=== PATIENT | male | born 1935 | race Caucasian/White ===

== ENCOUNTER 2019-06-05 12:59 | Inpatient (IN) | payer MEDICARE, BC ==
--- NOTE | 2019-06-05 13:25 | ED Physician Chart ---
ED Chief Complaint/HPI - Patient Information Date Seen:: 06/05/19 Time Seen:: 13:05 Chief Complaint:: elevated blood sugar History of Present Illness:: Patient's blood sugar was 400 this morning and has been elevated for the last 1 week. He has been anorexic for 2 days. No chills or fever. Patient's had an increased cough for 1 week. No vomiting or diarrhea. Patient was drinking alcohol heavily up to 1 week ago. He normally drinks beer, tequila and whiskey and normally drinks at least a six pack of beer per day. No history of alcohol withdrawal seizures. Patient has dementia so history was provided by the daughter brought the patient in. Patient lives with his daughter. Allergies:: Allergies Allergy/AdvReac Type Severity Reaction Status Date / Time No Known Allergies Allergy Verified 12/30/18 14:37 Historian:: Family Member Review:: Nurse's Note Reviewed ED Review of Systems - Review of Systems General/Constitutional: Weakness Skin: No skin lesions Head: No headache Eyes: No loss of vision ENT: No earache Neck: No neck pain, No swelling Cardio Vascular: No chest pain, No palpitations Pulmonary: No SOB GI: No nausea, No vomiting, No diarrhea G/U: No dysuria Musculoskeletal: No bone or joint pain Endocrine: No polyuria Psychiatric: Prior psych history Hematopoietic: No bruising Allergic/Immuno: No urticaria Neurological: No syncope ED Past Medical History - Past Medical History Past Medical History: HTN, DM, Other (benign prostatic hypertrophy) Family History: None Social History: Non Smoker, Alcohol Surgical History: None Psychiatricy History: Dementia, Other (dementia diagnosed 2 years ago) Medication: None Family Medical History - Family Member Mother History Unknown: Yes Ethnicity: Unknown Living Status: Unknown Hx Family Cancer: No Hx Family Coronary Artery Disease: No Hx Family Congestive Heart Failure: No Hx Family Hypertension: No Hx Family Stroke: No Hx Family Diabetes: No Hx Family Seizures: No Hx Family Dementia: No Hx Family AIDS: No Hx Family HIV: No Hx Family COPD: No Hx Family Hepatitis: No Hx Family Psychiatric Problems: No Hx Family Tuberculosis: No ED Physical Exam - Physical Examination General/Constitutional: Awake, Well-developed, well-nourished, Alert, No distress Head: Atraumatic Eyes: Lids, conjuctiva normal, PERRL Skin: Nl inspection, No rash, No skin lesions, No ecchymosis, Well hydrated, No lymphadenopathy ENMT: External ears, nose nl, TM canals nl, Nasal exam nl, Oropharynx nl Other ENMT comments:: one upper tooth present; several lower teeth present Neck: No JVD Respiratory: Nl effort/Exclusion, Clear to Auscultation, No Wheeze/Rhonchi/Rales Cardio Vascular: RRR, No murmur, gallop, rubs GI: No tenderness/rebounding/guarding, No organomegaly, No hernia, Normal BS's, Nondistended, No mass/bruits : No CVA tenderness Extremities: No edema Neuro/Psych: No focal deficits ED Labs/Radiology/EKG Results - Lab Results Results: Chest x-ray shows mild cardiomegaly and atherosclerosis - EKG Interpretations Rate & Rhythm: normal sinus rhythm with a rate of 62 [place]: normal axis Comments:: Q-wave in lead aVF ED Septic Shock - . Is Septic Shock (SBP<90, OR Lactate>4 mmol\L) present?: No ED Reassessment (Disposition) - Reassessment Reassessment Condition:: Unchanged - Diagnosis Diagnosis:: Anemia; diabetes with poor blood sugar control; hyperglycemia; history of heavy alcohol use - Patient Disposition Admitted to:: Med/Surg Spoke to:: Luz Lopez Admitting Medical Physician:: Luz Lopez Condition at Disposition:: Stable, Unchanged
--- NOTE | 2019-06-05 13:48 | Diagnostic Imaging Report ---
CHEST X-RAY: AP view INDICATION: Cough COMPARISON: 12/30/2018 FINDINGS: Chronic changes are noted with no focal consolidation or effusion. Left basal subsegmental atelectasis versus scarring is noted. Mild cardiomegaly is noted with tortuous aorta. There is mild prominent right paratracheal soft tissue density. Degenerative changes of the spine are noted. IMPRESSION: Chronic lung changes with no focal consolidation identified. Mild cardiomegaly with atherosclerosis Prominent right paratracheal soft tissue density, nonspecific, and may be due to prominent bronchovascular structures. Similar findings were seen on prior exams. Consider follow-up exam such as CT if warranted.
[2019-06-05 13:55] LABS: % MONOCYTES 9.8 % (2.0-10.0); BASOPHILE ABSOLUTE 0.1 Th/cumm (0-0.2); HEMOGLOBIN 9.6 gm/dL (12-16); MONOCYTE ABSOLUTE 0.4 Th/cmm (0.3-1.0)
[2019-06-05 13:58] LABS: % BASOPHILS 1.8 % (0.0-2.0); % EOSINOPHILS 3.9 % (0.0-5.0); % LYMPHOCYTES 27.9 % (20.0-50.0); % NEUTROPHILS 56.6 % (40.0-80.0); EOSINOPHILE ABSOLUTE 0.2 Th/cmm (0.1-0.4); HEMATOCRIT 28.9 % (41.0-60); LYMPHOCYTE ABSOLUTE 1.1 Th/cmm (1.5-3.0); MEAN CELL VOLUME 78.4 fl (80-99); MEAN CORPUSCULAR HEMOGLOBIN 26.1 pg (27.0-31.0); MEAN CORPUSCULAR HGB CONC 33.2 pg (28.0-36.0); NEUTROPHILE ABSOLUTE 2.1 Th/cmm (1.8-8.0); PLATELET COUNT 264 Th/cmm (150-400); RED BLOOD COUNT 3.68 Mil/cmm (3.80-5.80); RED CELL DISTRIBUTION WIDTH 14.4 % (11.5-20.0)
[2019-06-05 14:02] LABS: WHITE BLOOD COUNT 3.9 Th/cmm (4.8-10.8)
[2019-06-05 14:10] LABS: URINE SOURCE RANDOM
[2019-06-05 14:13] LABS: URINE BILIRUBIN NEGATIVE (NEGATIVE); URINE BLOOD NEGATIVE (NEGATIVE); URINE GLUCOSE (UA) >=1000 mg/dL (NEGATIVE); URINE KETONE TRACE mg/dL (NEGATIVE); URINE LEUKOCYTE ESTERASE NEGATIVE (NEGATIVE); URINE MICROSCOPIC INDICATED? YES; URINE NITRATE NEGATIVE (NEGATIVE); URINE PROTEIN 100 mg/dL (NEGATIVE)
[2019-06-05 14:14] LABS: URINE CLARITY HAZY (CLEAR); URINE COLOR YELLOW
[2019-06-05 14:20] LABS: URINE RBC NONE SEEN /hpf (0-5)
[2019-06-05 14:21] LABS: URINE BACTERIA FEW /hpf (NONE SEEN); URINE EPITHELIAL CELLS OCCASIONAL /lpf (FEW)
[2019-06-05 14:21] LABS: ANION GAP 12.2 (7.0-16.0); BUN - UREA NITROGEN 15 mg/dL (7-25); CALCIUM SERUM 9.1 mg/dL (8.6-10.3); CARBON DIOXIDE 25.9 mEq/L (21.0-31.0); CHLORIDE 105 mEq/L (98-107); CREATININE - SERUM 0.9 mg/dL (0.7-1.3); GLUCOSE 220 mg/dL (70-105); MAGNESIUM 2.2 mg/dL (1.9-2.7); POTASSIUM SERUM 4.1 mEq/L (3.5-5.1); SODIUM SERUM 139 mEq/L (136-145)
[2019-06-05] MEDS ORDERED: INSULIN LISPRO 100 UNIT/ML VIAL SUBQ SCH (16:40)
[2019-06-05] MEDS ORDERED: Pneumococcal Vaccine 0.5 mL Vial IM ONE (17:27)
[2019-06-05] MEDS: Sodium Chloride 0.9% 1,000 ML IV SCH (17:58)
--- NOTE | 2019-06-05 18:41 | History & Physical ---
ADMIT DATE: 06/05/2019 CHIEF COMPLAINT: Glucose of 400. HISTORY OF PRESENT ILLNESS: This is an 84-year-old male who is admitted to the Med/Surg unit due to a 1-week history of cough. Denies any shortness of breath or any fevers. The patient stated that he was drinking heavy alcohol a week ago and he noticed that his blood sugars started to jump up to 400 this morning. He states that his blood sugar was in the mid 400s. For this reason, he was brought to the ER to be evaluated. PAST MEDICAL HISTORY: Hypertension, diabetes and BPH. FAMILY HISTORY: Noncontributory. SOCIAL HISTORY: The patient is a heavy drinker. The patient drinks beer and tequila as well as whiskey. The patient states that he drinks about 6 pack beers per day. MEDICATIONS: See medication list. REVIEW OF SYSTEMS: GENERAL: Denies any fevers or chills. CARDIOVASCULAR: Denies chest pain. RESPIRATORY: No shortness of breath. GASTROINTESTINAL: Denies nausea, vomiting, abdominal pain. GENITOURINARY: Denies increased frequency or dysuria. NEUROLOGIC: No headaches, seizures or syncope. All systems are reviewed and are negative. PHYSICAL EXAMINATION: EXTREMITIES: The patient is well-developed, well-nourished, no apparent distress. VITAL SIGNS: Temperature 98.4, heart rate 65, blood pressure 143/70, respirations 18, O2 99%. HEENT: Head; normocephalic, atraumatic. NECK: Supple. No mass. LUNGS: Clear bilaterally. HEART: Regular rate and rhythm. ABDOMEN: Soft, nontender. EXTREMITIES: No edema noted. LABORATORY DATA: WBC 3.9, H and H 9.6 and 28.9, platelet of 264. Sodium 139, potassium 4.1, chloride 105, BUN 15, creatinine 0.9. ASSESSMENT: 1. Uncontrolled diabetes. 2. Alcoholism. 3. Generalized weakness. 4. Microcytic anemia. 5. Leukopenia. 6. Hypertension. 7. History of benign prostatic hypertrophy. PLAN: The patient to be admitted to the Med/Surg unit. We will do Accu-Chek a.c. and at bedtime with protocol for sliding scale. We will give gentle IV fluids for hydration. Keep the [facility] a [facility] diet. We will continue to monitor this patient. JOB# [id number]
[2019-06-05] MEDS ORDERED: Non-Formulary Item 1 EA (Atorvastatin Calcium [Lipitor] 20 MG) PO SCH (21:00)
[2019-06-05] MEDS: INSULIN LISPRO 100 UNIT/ML VIAL SUBQ SCH (23:59)
[2019-06-06] MEDS: Sodium Chloride 0.9% 1,000 ML IV SCH ×3 (04:58→23:03)
[2019-06-06 05:16] LABS: % BASOPHILS 1.3 % (0.0-2.0); % EOSINOPHILS 5.8 % (0.0-5.0); % LYMPHOCYTES 28.5 % (20.0-50.0); % MONOCYTES 11.2 % (2.0-10.0); % NEUTROPHILS 53.2 % (40.0-80.0); BASOPHILE ABSOLUTE 0.1 Th/cumm (0-0.2); EOSINOPHILE ABSOLUTE 0.3 Th/cmm (0.1-0.4); HEMATOCRIT 29.8 % (41.0-60); HEMOGLOBIN 9.7 gm/dL (12-16); LYMPHOCYTE ABSOLUTE 1.4 Th/cmm (1.5-3.0); MEAN CELL VOLUME 79.2 fl (80-99); MEAN CORPUSCULAR HEMOGLOBIN 25.8 pg (27.0-31.0); MEAN CORPUSCULAR HGB CONC 32.6 pg (28.0-36.0); MONOCYTE ABSOLUTE 0.5 Th/cmm (0.3-1.0); NEUTROPHILE ABSOLUTE 2.5 Th/cmm (1.8-8.0); PLATELET COUNT 252 Th/cmm (150-400); RED BLOOD COUNT 3.77 Mil/cmm (3.80-5.80); RED CELL DISTRIBUTION WIDTH 14.3 % (11.5-20.0); WHITE BLOOD COUNT 4.8 Th/cmm (4.8-10.8)
[2019-06-06 05:25] LABS: ALB/GLOB RATIO 1.5 (1.0-1.8); ALBUMIN 3.8 gm/dL (4.2-5.5); ALKALINE PHOSPHATASE 61 U/L (34-104); ANION GAP 10.6 (7.0-16.0); BILIRUBIN,TOTAL 0.5 mg/dL (0.3-1.0); BUN - UREA NITROGEN 13 mg/dL (7-25); CALCIUM SERUM 8.9 mg/dL (8.6-10.3); CARBON DIOXIDE 25.2 mEq/L (21.0-31.0); CHLORIDE 105 mEq/L (98-107); CREATININE - SERUM 0.8 mg/dL (0.7-1.3); GLUCOSE 166 mg/dL (70-105); POTASSIUM SERUM 3.8 mEq/L (3.5-5.1); SGOT 13 U/L (13-39); SGPT/ALT 4 U/L (7-52); SODIUM SERUM 137 mEq/L (136-145); TOTAL PROTEIN,SERUM 6.4 gm/dL (6.0-8.3)
[2019-06-06] MEDS: INSULIN LISPRO 100 UNIT/ML VIAL SUBQ SCH ×4 (05:34→21:15)
[2019-06-06 07:28] LABS: A1C 9.7 % (4.8-5.6)
[2019-06-06 07:58] VITALS: BP 143/70
[2019-06-06] MEDS: Vitamin D3 2,000 IU SGL PO SCH (08:11)
[2019-06-06] MEDS: Pantoprazole 40 mg EC Tab PO SCH (08:11)
[2019-06-06] MEDS: INSULIN 70/30 100 UNITS/ML SUBQ SCH ×2 (09:33→16:48)
--- NOTE | 2019-06-06 13:14 | Internal Medicine Prog Note ---
Internal Medicine Subjective - Subjective Service Date: 06/06/19 Patient seen and examined:: with staff Patient is:: awake, verbal Patient Complaints of:: other Per staff patient has:: no adverse event, no episodes of fall (Admitted with high glucose.) Internal Medicine Objective - Results Result Diagrams: 06/06/19 04:45 06/06/19 04:45 Recent Labs: Laboratory Last Values WBC 4.8 Th/cmm (4.8-10.8) 06/06/19 04:45 RBC 3.77 Mil/cmm (3.80-5.80) L 06/06/19 04:45 Hgb 9.7 gm/dL (12-16) L 06/06/19 04:45 Hct 29.8 % (41.0-60) L 06/06/19 04:45 MCV 79.2 fl (80-99) L 06/06/19 04:45 MCH 25.8 pg (27.0-31.0) L 06/06/19 04:45 MCHC Differential 32.6 pg (28.0-36.0) 06/06/19 04:45 RDW 14.3 % (11.5-20.0) 06/06/19 04:45 Plt Count 252 Th/cmm (150-400) 06/06/19 04:45 MPV 7.8 fl 06/06/19 04:45 Neutrophils % 53.2 % (40.0-80.0) 06/06/19 04:45 Lymphocytes % 28.5 % (20.0-50.0) 06/06/19 04:45 Monocytes % 11.2 % (2.0-10.0) H 06/06/19 04:45 Eosinophils % 5.8 % (0.0-5.0) H 06/06/19 04:45 Basophils % 1.3 % (0.0-2.0) 06/06/19 04:45 Sodium 137 mEq/L (136-145) 06/06/19 04:45 Potassium 3.8 mEq/L (3.5-5.1) 06/06/19 04:45 Chloride 105 mEq/L (98-107) 06/06/19 04:45 Carbon Dioxide 25.2 mEq/L (21.0-31.0) 06/06/19 04:45 Anion Gap 10.6 (7.0-16.0) 06/06/19 04:45 BUN 13 mg/dL (7-25) 06/06/19 04:45 Creatinine 0.8 mg/dL (0.7-1.3) 06/06/19 04:45 Est GFR ( Amer) TNP 06/06/19 04:45 Est GFR (Non-Af Amer) TNP 06/06/19 04:45 BUN/Creatinine Ratio 16.3 06/06/19 04:45 Glucose 166 mg/dL (70-105) H 06/06/19 04:45 POC Glucose 233 MG/DL (70 - 105) H 06/06/19 11:24 Calcium 8.9 mg/dL (8.6-10.3) 06/06/19 04:45 Magnesium 2.2 mg/dL (1.9-2.7) 06/05/19 13:25 Total Bilirubin 0.5 mg/dL (0.3-1.0) 06/06/19 04:45 AST 13 U/L (13-39) 06/06/19 04:45 ALT 4 U/L (7-52) L 06/06/19 04:45 Alkaline Phosphatase 61 U/L (34-104) 06/06/19 04:45 Total Protein 6.4 gm/dL (6.0-8.3) 06/06/19 04:45 Albumin 3.8 gm/dL (4.2-5.5) L 06/06/19 04:45 Globulin 2.6 gm/dL 06/06/19 04:45 Albumin/Globulin Ratio 1.5 (1.0-1.8) 06/06/19 04:45 TSH 1.04 uIU/ml (0.34-5.60) 06/06/19 04:45 Urine Source RANDOM 06/05/19 14:00 Urine Color YELLOW 06/05/19 14:00 Urine Clarity HAZY (CLEAR) 06/05/19 14:00 Urine pH 6.0 (4.6 - 8.0) 06/05/19 14:00 Ur Specific [place] 1.015 (1.005-1.030) 06/05/19 14:00 Urine Protein 100 mg/dL (NEGATIVE) H 06/05/19 14:00 Urine Glucose (UA) >=1000 mg/dL (NEGATIVE) H 06/05/19 14:00 Urine Ketones TRACE mg/dL (NEGATIVE) 06/05/19 14:00 Urine Blood NEGATIVE (NEGATIVE) 06/05/19 14:00 Urine Nitrate NEGATIVE (NEGATIVE) 06/05/19 14:00 Urine Bilirubin NEGATIVE (NEGATIVE) 06/05/19 14:00 Urine Urobilinogen 1.0 E.U./dL (0.2 - 1.0) 06/05/19 14:00 Ur Leukocyte Esterase NEGATIVE (NEGATIVE) 06/05/19 14:00 Urine RBC NONE SEEN /hpf (0-5) 06/05/19 14:00 Urine WBC 2-5 /hpf (0-5) 06/05/19 14:00 Ur Epithelial Cells OCCASIONAL /lpf (FEW) 06/05/19 14:00 Urine Bacteria FEW /hpf (NONE SEEN) 06/05/19 14:00 - Physical Exam Vitals and I&O: Vital Signs Temp 97.1 F 06/06/19 12:00 Pulse 72 06/06/19 12:00 Resp 17 06/06/19 12:00 BP 96/54 06/06/19 12:00 Pulse Ox 99 06/06/19 12:00 Intake & Output 06/05/19 06/06/19 06/06/19 18:59 06:59 18:59 Intake Total 300 1360 Output Total 0 Balance 300 1360 Weight (lbs) 63.82 kg 63.503 kg Intake: Intake, IV Amount 1000 Sodium Chloride 0.9% 1, 1000 000 ml @ 100 mls/hr IV . Q10H [facility] Rx#:[id number] Oral 300 360 Output: Urine 0 Other: # Voids 1 4 Weight Source Bedscale Bedscale Active Medications: Current Medications Amlodipine Besylate (Norvasc) 10 mg PO DAILY SUSAN Stop: 08/05/19 08:59 Last Admin: 06/06/19 08:23 Dose: 10 mg Atorvastatin Calcium (Lipitor) 20 mg PO HS [facility] Stop: 08/05/19 20:59 Donepezil HCl (Aricept) 10 mg PO HS SUSAN Stop: 08/04/19 20:59 Last Admin: 06/05/19 20:05 Dose: 10 mg Doxazosin Mesylate (Cardura) 4 mg PO DAILY [facility]USAN Stop: 08/05/19 08:59 Last Admin: 06/06/19 08:23 Dose: 4 mg Folic Acid (Folate) 0.4 mg PO DAILY [facility]AN Stop: 08/05/19 08:59 Last Admin: 06/06/19 08:12 Dose: 0.4 mg Gabapentin (Neurontin) 100 mg PO BID [facility] Stop: 08/05/19 08:59 Last Admin: 06/06/19 08:11 Dose: 100 mg Sodium Chloride (Nacl 0.9%) 1,000 mls @ 100 mls/hr IV .Q10H [facility] Stop: 08/04/19 16:39 Last Admin: 06/06/19 04:58 Dose: 100 mls/hr Insulin Human Isoph/Insulin Regular (Humulin 70/30) 18 unit SUBQ BIDAC [facility] Stop: 08/05/19 08:59 Last Admin: 06/06/19 09:33 Dose: 18 units Insulin Human Lispro (Humalog) 2 unit SUBQ ACHS [facility]; Protocol Stop: 08/05/19 00:00 Last Admin: 06/06/19 12:15 Dose: 4 units Lisinopril (Zestril) 40 mg PO DAILY SUSAN Stop: 08/05/19 08:59 Last Admin: 06/06/19 08:22 Dose: 40 mg Memantine (Namenda) 5 mg PO TID [facility] Stop: 08/05/19 08:59 Last Admin: 06/06/19 08:30 Dose: 5 mg Metformin HCl (Glucophage) 500 mg PO BID [facility] Stop: 08/04/19 16:59 Last Admin: 06/06/19 08:11 Dose: 500 mg Pantoprazole Sodium (Protonix) 40 mg PO DAILY [facility] Stop: 08/05/19 08:59 Last Admin: 06/06/19 08:11 Dose: 40 mg Sodium Chloride (Nacl Tab) 1 gm PO DAILY [facility]USAN Stop: 08/05/19 08:59 Last Admin: 06/06/19 08:11 Dose: 1 gm Thiamine HCl (Vitamin B1) 250 mg PO DAILY [facility] Stop: 08/05/19 08:59 Last Admin: 06/06/19 08:12 Dose: 250 mg Vitamin D (Vitamin D3) 2,000 iu PO DAILY [facility] Stop: 08/05/19 08:59 Last Admin: 06/06/19 08:11 Dose: 2,000 iu Physical Exam: Patient has fatigue. General: weak HEENT: NC/AT Neck: Supple, No JVD Lungs: CTAB Cardiovascular: RRR, Normal S1 Abdomen: soft, non-tender Extremities: clear Neurological: no change Internal Medicine Assmt/Plan - Assessment Assessment: Anemia. Diabetes with blood sugar control. Hyperglycemia. History of heavy alcohol use. - Plan Plan: Continuation of care. Monitor Labs, Hemoglobin levels. Continue present meds as directed. Accu-check daily, Continue DM meds as directed. Monitor Diet/Nutritional support. Physical therapy.Occupational therapy prn. Fall precaution, frequent nursing rounds, and as needed restraints to prevent fall. Supportive care. Continue collaborating with consulting specialists, case management and nursing team. Will Monitor patient and continue current treatment plan as ordered. Nutritional Asmnt/Malnutr-PDOC - Dietary Evaluation Malnutrition Findings (Please click <Entered> for more info): see order.
[2019-06-06] MEDS ORDERED: VTE Chemical Prophylaxis Screen/Admission MC PRN (13:48)
[2019-06-06] MEDS: Atorvastatin Calcium 10 MG TAB PO SCH (21:05)
[2019-06-06] MEDS: Heparin Sod 5,000Units/ML 5,000 UNITS/ML VIAL SUBQ SCH (21:13)
[2019-06-07] MEDS ORDERED: INSULIN LISPRO 100 UNIT/ML VIAL SUBQ SCH
[2019-06-07] MEDS: INSULIN LISPRO 100 UNIT/ML VIAL SUBQ SCH ×4 (06:59→20:32)
[2019-06-07] MEDS: INSULIN 70/30 100 UNITS/ML SUBQ SCH ×2 (07:01→17:01)
[2019-06-07] MEDS: Sodium Chloride 0.9% 1,000 ML IV SCH ×2 (09:12→18:08)
[2019-06-07] MEDS: Heparin Sod 5,000Units/ML 5,000 UNITS/ML VIAL SUBQ SCH ×2 (09:14→20:30)
[2019-06-07] MEDS: Pantoprazole 40 mg EC Tab PO SCH (09:16)
[2019-06-07] MEDS: Vitamin D3 2,000 IU SGL PO SCH (09:22)
[2019-06-07 09:32] LABS: ANION GAP 11.8 (7.0-16.0); BUN - UREA NITROGEN 11 mg/dL (7-25); CALCIUM SERUM 8.5 mg/dL (8.6-10.3); CARBON DIOXIDE 24.5 mEq/L (21.0-31.0); CHLORIDE 104 mEq/L (98-107); CREATININE - SERUM 0.7 mg/dL (0.7-1.3); GLUCOSE 308 mg/dL (70-105); POTASSIUM SERUM 3.3 mEq/L (3.5-5.1); SODIUM SERUM 137 mEq/L (136-145)
[2019-06-07 09:43] LABS: % BASOPHILS 1.2 % (0.0-2.0); % EOSINOPHILS 4.8 % (0.0-5.0); % LYMPHOCYTES 24.6 % (20.0-50.0); % MONOCYTES 8.2 % (2.0-10.0); % NEUTROPHILS 61.2 % (40.0-80.0); EOSINOPHILE ABSOLUTE 0.2 Th/cmm (0.1-0.4); HEMATOCRIT 29.5 % (41.0-60); HEMOGLOBIN 9.7 gm/dL (12-16); LYMPHOCYTE ABSOLUTE 0.8 Th/cmm (1.5-3.0); MEAN CELL VOLUME 79.2 fl (80-99); MEAN CORPUSCULAR HEMOGLOBIN 26.1 pg (27.0-31.0); MEAN CORPUSCULAR HGB CONC 32.9 pg (28.0-36.0); MONOCYTE ABSOLUTE 0.3 Th/cmm (0.3-1.0); PLATELET COUNT 242 Th/cmm (150-400); RED BLOOD COUNT 3.72 Mil/cmm (3.80-5.80); RED CELL DISTRIBUTION WIDTH 14.5 % (11.5-20.0)
[2019-06-07 09:55] LABS: WHITE BLOOD COUNT 3.3 Th/cmm (4.8-10.8)
[2019-06-07] MEDS ORDERED: Potassium Chloride 20 mEq ER Tab PO ONE (10:25)
--- NOTE | 2019-06-07 10:35 | Internal Medicine Prog Note ---
Internal Medicine Subjective - Subjective Service Date: 06/07/19 Patient seen and examined:: with staff Patient is:: awake, verbal Patient Complaints of:: other Per staff patient has:: no adverse event, no episodes of fall (Admitted with high glucose.) Internal Medicine Objective - Results Result Diagrams: 06/07/19 08:55 06/07/19 08:55 Recent Labs: Laboratory Last Values WBC 3.3 Th/cmm (4.8-10.8) L 06/07/19 08:55 RBC 3.72 Mil/cmm (3.80-5.80) L 06/07/19 08:55 Hgb 9.7 gm/dL (12-16) L 06/07/19 08:55 Hct 29.5 % (41.0-60) L 06/07/19 08:55 MCV 79.2 fl (80-99) L 06/07/19 08:55 MCH 26.1 pg (27.0-31.0) L 06/07/19 08:55 MCHC Differential 32.9 pg (28.0-36.0) 06/07/19 08:55 RDW 14.5 % (11.5-20.0) 06/07/19 08:55 Plt Count 242 Th/cmm (150-400) 06/07/19 08:55 MPV 8.2 fl 06/07/19 08:55 Neutrophils % 61.2 % (40.0-80.0) 06/07/19 08:55 Lymphocytes % 24.6 % (20.0-50.0) 06/07/19 08:55 Monocytes % 8.2 % (2.0-10.0) 06/07/19 08:55 Eosinophils % 4.8 % (0.0-5.0) 06/07/19 08:55 Basophils % 1.2 % (0.0-2.0) 06/07/19 08:55 Sodium 137 mEq/L (136-145) 06/07/19 08:55 Potassium 3.3 mEq/L (3.5-5.1) L 06/07/19 08:55 Chloride 104 mEq/L (98-107) 06/07/19 08:55 Carbon Dioxide 24.5 mEq/L (21.0-31.0) 06/07/19 08:55 Anion Gap 11.8 (7.0-16.0) 06/07/19 08:55 BUN 11 mg/dL (7-25) 06/07/19 08:55 Creatinine 0.7 mg/dL (0.7-1.3) 06/07/19 08:55 Est GFR ( Amer) TNP 06/07/19 08:55 Est GFR (Non-Af Amer) TNP 06/07/19 08:55 BUN/Creatinine Ratio 15.7 06/07/19 08:55 Glucose 308 mg/dL (70-105) H 06/07/19 08:55 POC Glucose 239 MG/DL (70 - 105) H 06/07/19 06:11 Calcium 8.5 mg/dL (8.6-10.3) L 06/07/19 08:55 Magnesium 2.2 mg/dL (1.9-2.7) 06/05/19 13:25 Total Bilirubin 0.5 mg/dL (0.3-1.0) 06/06/19 04:45 AST 13 U/L (13-39) 06/06/19 04:45 ALT 4 U/L (7-52) L 06/06/19 04:45 Alkaline Phosphatase 61 U/L (34-104) 06/06/19 04:45 Total Protein 6.4 gm/dL (6.0-8.3) 06/06/19 04:45 Albumin 3.8 gm/dL (4.2-5.5) L 06/06/19 04:45 Globulin 2.6 gm/dL 06/06/19 04:45 Albumin/Globulin Ratio 1.5 (1.0-1.8) 06/06/19 04:45 TSH 1.04 uIU/ml (0.34-5.60) 06/06/19 04:45 Urine Source RANDOM 06/05/19 14:00 Urine Color YELLOW 06/05/19 14:00 Urine Clarity HAZY (CLEAR) 06/05/19 14:00 Urine pH 6.0 (4.6 - 8.0) 06/05/19 14:00 Ur Specific [place] 1.015 (1.005-1.030) 06/05/19 14:00 Urine Protein 100 mg/dL (NEGATIVE) H 06/05/19 14:00 Urine Glucose (UA) >=1000 mg/dL (NEGATIVE) H 06/05/19 14:00 Urine Ketones TRACE mg/dL (NEGATIVE) 06/05/19 14:00 Urine Blood NEGATIVE (NEGATIVE) 06/05/19 14:00 Urine Nitrate NEGATIVE (NEGATIVE) 06/05/19 14:00 Urine Bilirubin NEGATIVE (NEGATIVE) 06/05/19 14:00 Urine Urobilinogen 1.0 E.U./dL (0.2 - 1.0) 06/05/19 14:00 Ur Leukocyte Esterase NEGATIVE (NEGATIVE) 06/05/19 14:00 Urine RBC NONE SEEN /hpf (0-5) 06/05/19 14:00 Urine WBC 2-5 /hpf (0-5) 06/05/19 14:00 Ur Epithelial Cells OCCASIONAL /lpf (FEW) 06/05/19 14:00 Urine Bacteria FEW /hpf (NONE SEEN) 06/05/19 14:00 - Physical Exam Vitals and I&O: Vital Signs Temp 97.0 F 06/07/19 08:00 Pulse 66 06/07/19 09:19 Resp 17 06/07/19 08:00 BP 150/69 06/07/19 09:19 Pulse Ox 98 06/07/19 08:00 Intake & Output 06/06/19 06/07/19 06/07/19 18:59 06:59 18:59 Intake Total 1440 5116.613 0893 Output Total 800 Balance 1440 768.177 6241 Weight (lbs) 63.503 kg 69.037 kg Intake: Intake, IV Amount 890 102.284 2230 Sodium Chloride 0.9% 1, 890 806.579 2003 000 ml @ 100 mls/hr IV . Q10H [facility] Rx#:[id number] Oral 550 300 Output: Urine 800 Other: # Voids 3 Weight Source Bedscale Bedscale Active Medications: Current Medications Amlodipine Besylate (Norvasc) 10 mg PO DAILY [facility]USAN Stop: 08/05/19 08:59 Last Admin: 06/07/19 09:19 Dose: 10 mg Atorvastatin Calcium (Lipitor) 20 mg PO HS [facility] Stop: 08/05/19 20:59 Last Admin: 06/06/19 21:05 Dose: 20 mg Donepezil HCl (Aricept) 10 mg PO HS [facility] Stop: 08/04/19 20:59 Last Admin: 06/06/19 21:06 Dose: 10 mg Doxazosin Mesylate (Cardura) 4 mg PO DAILY [facility] Stop: 08/05/19 08:59 Last Admin: 06/07/19 09:19 Dose: 4 mg Folic Acid (Folate) 0.4 mg PO DAILY [facility] Stop: 08/05/19 08:59 Last Admin: 06/07/19 09:16 Dose: 0.4 mg Gabapentin (Neurontin) 100 mg PO BID [facility] Stop: 08/05/19 08:59 Last Admin: 06/07/19 09:20 Dose: 100 mg Heparin Sodium (Porcine) (Heparin) 5,000 units SUBQ Q12H [facility] Stop: 08/05/19 20:59 Last Admin: 06/07/19 09:14 Dose: 5,000 units Sodium Chloride (Nacl 0.9%) 1,000 mls @ 100 mls/hr IV .Q10H [facility] Stop: 08/04/19 16:39 Last Admin: 06/07/19 09:12 Dose: 100 mls/hr Insulin Human Isoph/Insulin Regular (Humulin 70/30) 18 unit SUBQ BIDAC [facility] Stop: 08/05/19 08:59 Last Admin: 06/07/19 07:01 Dose: 18 units Insulin Human Lispro (Humalog) 2 unit SUBQ [facility]; Protocol Stop: 08/05/19 00:00 Last Admin: 06/07/19 06:59 Dose: 4 units Lisinopril (Zestril) 40 mg PO DAILY [facility] Stop: 08/05/19 08:59 Last Admin: 06/07/19 09:18 Dose: 40 mg Memantine (Namenda) 5 mg PO TID [facility] Stop: 08/05/19 08:59 Last Admin: 06/07/19 09:22 Dose: 5 mg Metformin HCl (Glucophage) 500 mg PO BID [facility] Stop: 08/04/19 16:59 Last Admin: 06/07/19 09:22 Dose: 500 mg Miscellaneous (Vte Chemical Prophylaxis Screen/ Admission) 1 ea [facility] PRN PRN PRN Reason: PROTOCOL Stop: 08/05/19 13:47 Pantoprazole Sodium (Protonix) 40 mg PO DAILY [facility] Stop: 08/05/19 08:59 Last Admin: 06/07/19 09:16 Dose: 40 mg Potassium Chloride (Klor-Con) 40 meq PO X1 ONE Stop: 06/07/19 10:26 Sodium Chloride (Nacl Tab) 1 gm PO DAILY [facility]USAN Stop: 08/05/19 08:59 Last Admin: 06/07/19 09:22 Dose: 1 gm Thiamine HCl (Vitamin B1) 250 mg PO DAILY [facility] Stop: 08/05/19 08:59 Last Admin: 06/07/19 09:20 Dose: 250 mg Vitamin D (Vitamin D3) 2,000 iu PO DAILY [facility]US[facility] Stop: 08/05/19 08:59 Last Admin: 06/07/19 09:22 Dose: 2,000 iu Physical Exam: Patient has weakness. General: weak HEENT: NC/AT Neck: Supple, No JVD Lungs: CTAB Cardiovascular: RRR, Normal S1 Abdomen: soft, non-tender Extremities: clear Neurological: no change Internal Medicine Assmt/Plan - Assessment Assessment: Anemia. Diabetes with blood sugar control. Hyperglycemia. History of heavy alcohol use. - Plan Plan: Continuation of care. Monitor Labs, Hemoglobin levels. Continue present meds as directed. Accu-check daily, Continue DM meds as directed. Monitor Diet/Nutritional support. Physical therapy.Occupational therapy prn. Fall precaution, frequent nursing rounds, and as needed restraints to prevent fall. Supportive care. Continue collaborating with consulting specialists, case management and nursing team. Will Monitor patient and continue present care management. Nutritional Asmnt/Malnutr-PDOC - Dietary Evaluation Malnutrition Findings (Please click <Entered> for more info): Nutritional Asmnt/Malnutrition Start: 06/06/19 16: 15 Text: Status: Complete Freq: Protocol: Document 06/06/19 16:15 BINH (Rec: 06/06/19 16:18 [id number] [email or web address] ) Nutritional Asmnt/Malnutrition Patient General Information Nutritional Screening High Risk Low Risk Diagnosis Uncontrolled Diabetes Pertinent Medical Hx/Surgical Hx HTN, DM, Dyslipidemia, BPH Subjective Information IA/Consult: Uncontrolled Diabetes Pt is a 84-year-old male admitted on 06/05 d/t uncontrolled diabetes. Per H& P Record, Pt is a heavy drinker, drinks beer and tequila as well as whiskey. Pt stated he drinks about 6 pack beers per day. Per Meal/ Nutrition Activity Record, Pt ate 100% dinner on 06/05. Per RN Sissy, Pt ate 100% breakfast and lunch today. RN stated Pts usual diet was not noted since Pt is from home and [place] speaking only. No [place]ese speaking staffs available at time of visit. Will assess as high risk in 2- 3 days. HT: 56 WT: 140 LB (63.64 kg) BMI: 22.60 (Normal) GI: WNL, Non-tender, Large, Round BM: Not Noted I/O: 1660/Not Noted Skin: WNL, Intact, Warm, Dry, Elastic Isaac: 20 Diet Order: CCHO 60 gm Estimated Energy Needs: ( Geriatric, CBW) 2711-3210 kcals (25-30 kcals/ kg) 63-76 g Pro (1.0-1.2 g/kg) 4503-7491 ml (25-30 ml/kg) Current Diet Order/ Nutrition Support CCHO 60 gm Pertinent Medications Lipitor, Folate, Humulin 70/30 , Humalog, Glucophage, Protonix, Nacl 0.9%, Nacl Tab, Vitamin B1, Vitamin D3 Pertinent Labs POC Glucose (last 24 hours) 256, 170, 194, 252 06/06: Hgb/Hct 9.7/29.8, Glucose 166, Alb 3.8 06/05: Hgb/Hct 9.6/28.9, Glucose 220 Nutritional Hx/Data Height 1.68 m Height (Calculated Centimeters) 167.6 Current Weight (lbs) 63.503 kg Weight (Calculated Kilograms) 63.5 Weight (Calculated Grams) 82254.9 [place] Body Weight 64.55 kg % [place] Body Weight 99 Body Mass Index (BMI) 22.6 Weight Status Approriate GI Symptoms GI Symptoms None Last BM Not Noted Skin Integrity/Comment: WNL, Intact, Warm, Dry, Elastic Isaac: 20 Current %PO Good (75-100%) Estimated Nutritional Goals BEE in Kcals: Using Current wt Calories/Kcals/Kg 25-30 Kcals Calculated 6787-8628 Protein: Using Current wt Protein g/k.0-1.2 Protein Calculated 63-76 Fluid: ml 4762-9934 ml (25-30 ml/kg) Nutritional Problem 1. Problem Problem Altered nutrition related labs Etiology r/t endocrine dysfunction and HX of DM Signs/Symptoms: aeb Glucose 166 and POC Glucose (last 24 hours) 256, 170, 194, 252 Malnutrition Related to Morbid Obesity Malnutrition related to morbid obesity No Intervention/Recommendation Comments 1.Continue with CCHO 60 gm diet as ordered. 2.Continue on anti- hyperglycemic medications for glucose control per MD order. Expected Outcomes/Goals Expected Outcomes/Goals 1. PO intake to continue to meet 75% of nutritional needs. 2. Monitor PO intake, wt, skin integrity, and nutrition related labs to trend WNL. 3. F/U as high risk in 2-3 days, 06/08-06/09
[2019-06-07] MEDS: Atorvastatin Calcium 10 MG TAB PO SCH (20:31)
[2019-06-08] MEDS: INSULIN LISPRO 100 UNIT/ML VIAL SUBQ SCH ×4 (07:17→21:20)
[2019-06-08] MEDS: INSULIN 70/30 100 UNITS/ML SUBQ SCH ×2 (07:17→16:43)
[2019-06-08] MEDS: Pantoprazole 40 mg EC Tab PO SCH (08:51)
[2019-06-08] MEDS: Vitamin D3 2,000 IU SGL PO SCH (08:52)
[2019-06-08] MEDS: Heparin Sod 5,000Units/ML 5,000 UNITS/ML VIAL SUBQ SCH ×2 (08:54→20:57)
--- NOTE | 2019-06-08 10:44 | Internal Medicine Prog Note ---
Internal Medicine Subjective - Subjective Patient is:: awake, verbal, interactive, arousable, in bed, other (No acute distress) Per staff patient has:: no adverse event, no episodes of fall (Admitted with high glucose.) Internal Medicine Objective - Results Result Diagrams: 06/07/19 08:55 06/07/19 08:55 Recent Labs: Laboratory Last Values WBC 3.3 Th/cmm (4.8-10.8) L 06/07/19 08:55 RBC 3.72 Mil/cmm (3.80-5.80) L 06/07/19 08:55 Hgb 9.7 gm/dL (12-16) L 06/07/19 08:55 Hct 29.5 % (41.0-60) L 06/07/19 08:55 MCV 79.2 fl (80-99) L 06/07/19 08:55 MCH 26.1 pg (27.0-31.0) L 06/07/19 08:55 MCHC Differential 32.9 pg (28.0-36.0) 06/07/19 08:55 RDW 14.5 % (11.5-20.0) 06/07/19 08:55 Plt Count 242 Th/cmm (150-400) 06/07/19 08:55 MPV 8.2 fl 06/07/19 08:55 Neutrophils % 61.2 % (40.0-80.0) 06/07/19 08:55 Lymphocytes % 24.6 % (20.0-50.0) 06/07/19 08:55 Monocytes % 8.2 % (2.0-10.0) 06/07/19 08:55 Eosinophils % 4.8 % (0.0-5.0) 06/07/19 08:55 Basophils % 1.2 % (0.0-2.0) 06/07/19 08:55 Sodium 137 mEq/L (136-145) 06/07/19 08:55 Potassium 3.3 mEq/L (3.5-5.1) L 06/07/19 08:55 Chloride 104 mEq/L (98-107) 06/07/19 08:55 Carbon Dioxide 24.5 mEq/L (21.0-31.0) 06/07/19 08:55 Anion Gap 11.8 (7.0-16.0) 06/07/19 08:55 BUN 11 mg/dL (7-25) 06/07/19 08:55 Creatinine 0.7 mg/dL (0.7-1.3) 06/07/19 08:55 Est GFR ( Amer) TNP 06/07/19 08:55 Est GFR (Non-Af Amer) TNP 06/07/19 08:55 BUN/Creatinine Ratio 15.7 06/07/19 08:55 Glucose 308 mg/dL (70-105) H 06/07/19 08:55 POC Glucose 268 MG/DL (70 - 105) H 06/08/19 06:22 Calcium 8.5 mg/dL (8.6-10.3) L 06/07/19 08:55 Magnesium 2.2 mg/dL (1.9-2.7) 06/05/19 13:25 Total Bilirubin 0.5 mg/dL (0.3-1.0) 06/06/19 04:45 AST 13 U/L (13-39) 06/06/19 04:45 ALT 4 U/L (7-52) L 06/06/19 04:45 Alkaline Phosphatase 61 U/L (34-104) 06/06/19 04:45 Total Protein 6.4 gm/dL (6.0-8.3) 06/06/19 04:45 Albumin 3.8 gm/dL (4.2-5.5) L 06/06/19 04:45 Globulin 2.6 gm/dL 06/06/19 04:45 Albumin/Globulin Ratio 1.5 (1.0-1.8) 06/06/19 04:45 TSH 1.04 uIU/ml (0.34-5.60) 06/06/19 04:45 Urine Source RANDOM 06/05/19 14:00 Urine Color YELLOW 06/05/19 14:00 Urine Clarity HAZY (CLEAR) 06/05/19 14:00 Urine pH 6.0 (4.6 - 8.0) 06/05/19 14:00 Ur Specific [place] 1.015 (1.005-1.030) 06/05/19 14:00 Urine Protein 100 mg/dL (NEGATIVE) H 06/05/19 14:00 Urine Glucose (UA) >=1000 mg/dL (NEGATIVE) H 06/05/19 14:00 Urine Ketones TRACE mg/dL (NEGATIVE) 06/05/19 14:00 Urine Blood NEGATIVE (NEGATIVE) 06/05/19 14:00 Urine Nitrate NEGATIVE (NEGATIVE) 06/05/19 14:00 Urine Bilirubin NEGATIVE (NEGATIVE) 06/05/19 14:00 Urine Urobilinogen 1.0 E.U./dL (0.2 - 1.0) 06/05/19 14:00 Ur Leukocyte Esterase NEGATIVE (NEGATIVE) 06/05/19 14:00 Urine RBC NONE SEEN /hpf (0-5) 06/05/19 14:00 Urine WBC 2-5 /hpf (0-5) 06/05/19 14:00 Ur Epithelial Cells OCCASIONAL /lpf (FEW) 06/05/19 14:00 Urine Bacteria FEW /hpf (NONE SEEN) 06/05/19 14:00 - Physical Exam Vitals and I&O: Vital Signs Temp 97.7 F 06/08/19 08:00 Pulse 66 06/08/19 08:53 Resp 18 06/08/19 08:00 BP 151/66 06/08/19 08:53 Pulse Ox 100 06/08/19 08:00 Intake & Output 06/07/19 06/08/19 06/08/19 18:59 06:59 18:59 Intake Total 1893.333 300 200 Output Total 1000 800 Balance 1893.333 -700 -600 Weight (lbs) 155 lb 155 lb 9.6 oz Intake: Intake, IV Amount 1893.333 Sodium Chloride 0.9% 1, 1893.333 000 ml @ 100 mls/hr IV . Q10H [facility] Rx#:[id number] Oral 300 200 Output: Urine 1000 800 Other: # Voids 3 Weight Source Bedscale Bedscale Active Medications: Current Medications Amlodipine Besylate (Norvasc) 10 mg PO DAILY SUSAN Stop: 08/05/19 08:59 Last Admin: 06/08/19 08:53 Dose: 10 mg Atorvastatin Calcium (Lipitor) 20 mg PO HS SUSAN Stop: 08/05/19 20:59 Last Admin: 06/07/19 20:31 Dose: 20 mg Donepezil HCl (Aricept) 10 mg PO HS SUSAN Stop: 08/04/19 20:59 Last Admin: 06/07/19 20:33 Dose: 10 mg Doxazosin Mesylate (Cardura) 4 mg PO DAILY [facility] Stop: 08/05/19 08:59 Last Admin: 06/08/19 08:52 Dose: 4 mg Folic Acid (Folate) 0.4 mg PO DAILY SUSAN Stop: 08/05/19 08:59 Last Admin: 06/08/19 08:51 Dose: 0.4 mg Gabapentin (Neurontin) 100 mg PO BID [facility]AN Stop: 08/05/19 08:59 Last Admin: 06/08/19 08:56 Dose: 100 mg Heparin Sodium (Porcine) (Heparin) 5,000 units SUBQ Q12H [facility] Stop: 08/05/19 20:59 Last Admin: 06/08/19 08:54 Dose: 5,000 units Sodium Chloride (Nacl 0.9%) 1,000 mls @ 100 mls/hr IV .Q10H [facility] Stop: 08/04/19 16:39 Last Admin: 06/07/19 18:08 Dose: 100 mls/hr Insulin Human Isoph/Insulin Regular (Humulin 70/30) 18 unit SUBQ BIDAC [facility] Stop: 08/05/19 08:59 Last Admin: 06/08/19 07:17 Dose: 18 units Insulin Human Lispro (Humalog) 2 unit SUBQ [facility]; Protocol Stop: 08/05/19 00:00 Last Admin: 06/08/19 07:17 Dose: 6 units Lisinopril (Zestril) 40 mg PO DAILY [facility] Stop: 08/05/19 08:59 Last Admin: 06/08/19 08:51 Dose: 40 mg Memantine (Namenda) 5 mg PO TID [facility] Stop: 08/05/19 08:59 Last Admin: 06/08/19 08:53 Dose: 5 mg Metformin HCl (Glucophage) 500 mg PO BID [facility] Stop: 08/04/19 16:59 Last Admin: 06/08/19 08:53 Dose: 500 mg Miscellaneous (Vte Chemical Prophylaxis Screen/ Admission) 1 ea [facility] PRN PRN PRN Reason: PROTOCOL Stop: 08/05/19 13:47 Pantoprazole Sodium (Protonix) 40 mg PO DAILY [facility] Stop: 08/05/19 08:59 Last Admin: 06/08/19 08:51 Dose: 40 mg Sodium Chloride (Nacl Tab) 1 gm PO DAILY [facility] Stop: 08/05/19 08:59 Last Admin: 06/08/19 08:51 Dose: 1 gm Thiamine HCl (Vitamin B1) 250 mg PO DAILY [facility]USAN Stop: 08/05/19 08:59 Last Admin: 06/08/19 08:53 Dose: 250 mg Vitamin D (Vitamin D3) 2,000 iu PO DAILY [facility]US[facility] Stop: 08/05/19 08:59 Last Admin: 06/08/19 08:52 Dose: 2,000 iu General: weak HEENT: NC/AT Neck: Supple, No JVD Lungs: CTAB Cardiovascular: RRR, Normal S1, Normal S2 Abdomen: soft, non-tender Extremities: clear Neurological: no change Internal Medicine Assmt/Plan - Assessment Assessment: Anemia Diabetes Hx ETOH abuse - Plan Plan: Continue current treatment plan. Monitor Labs.Continue current medications Continue to monitor VS Monitor Diet/Nutritional support. Psych management per Psychiatry. Pain Management. PT/OT prn Safety precaution, Fall precaution, frequent nursing round. Supportive care. Continue collaborating with consulting specialists, case management and nursing team. Nutritional Asmnt/Malnutr-PDOC - Dietary Evaluation Malnutrition Findings (Please click <Entered> for more info): Nutritional Asmnt/Malnutrition Start: 06/06/19 16: 15 Text: Status: Complete Freq: Protocol: Document 06/06/19 16:15 BINH (Rec: 06/06/19 16:18 [email or web address] ) Nutritional Asmnt/Malnutrition Patient General Information Nutritional Screening High Risk Low Risk Diagnosis Uncontrolled Diabetes Pertinent Medical Hx/Surgical Hx HTN, DM, Dyslipidemia, BPH Subjective Information IA/Consult: Uncontrolled Diabetes Pt is a 84-year-old male admitted on 06/05 d/t uncontrolled diabetes. Per H& P Record, Pt is a heavy drinker, drinks beer and tequila as well as whiskey. Pt stated he drinks about 6 pack beers per day. Per Meal/ Nutrition Activity Record, Pt ate 100% dinner on 06/05. Per NASEEM [place], Pt ate 100% breakfast and lunch today. RN stated Pts usual diet was not noted since Pt is from home and [place]ian speaking only. No [place] speaking staffs available at time of visit. Will assess as high risk in 2- 3 days. HT: 56 WT: 140 LB (63.64 kg) BMI: 22.60 (Normal) GI: WNL, Non-tender, Large, Round BM: Not Noted I/O: 1660/Not Noted Skin: WNL, Intact, Warm, Dry, Elastic Isaac: 20 Diet Order: CCHO 60 gm Estimated Energy Needs: ( Geriatric, CBW) 1833-0890 kcals (25-30 kcals/ kg) 63-76 g Pro (1.0-1.2 g/kg) 3344-9579 ml (25-30 ml/kg) Current Diet Order/ Nutrition Support CCHO 60 gm Pertinent Medications Lipitor, Folate, Humulin 70/30 , Humalog, Glucophage, Protonix, Nacl 0.9%, Nacl Tab, Vitamin B1, Vitamin D3 Pertinent Labs POC Glucose (last 24 hours) 256, 170, 194, 252 06/06: Hgb/Hct 9.7/29.8, Glucose 166, Alb 3.8 06/05: Hgb/Hct 9.6/28.9, Glucose 220 Nutritional Hx/Data Height 5 ft 6 in Height (Calculated Centimeters) 167.6 Current Weight (lbs) 140 lb Weight (Calculated Kilograms) 63.5 Weight (Calculated Grams) 76713.9 [place] Body Weight 64.55 kg % [place] Body Weight 99 Body Mass Index (BMI) 22.6 Weight Status Approriate GI Symptoms GI Symptoms None Last BM Not Noted Skin Integrity/Comment: WNL, Intact, Warm, Dry, Elastic Isaac: 20 Current %PO Good (75-100%) Estimated Nutritional Goals BEE in Kcals: Using Current wt Calories/Kcals/Kg 25-30 Kcals Calculated 1312-4629 Protein: Using Current wt Protein g/k.0-1.2 Protein Calculated 63-76 Fluid: ml 8721-0664 ml (25-30 ml/kg) Nutritional Problem 1. Problem Problem Altered nutrition related labs Etiology r/t endocrine dysfunction and HX of DM Signs/Symptoms: aeb Glucose 166 and POC Glucose (last 24 hours) 256, 170, 194, 252 Malnutrition Related to Morbid Obesity Malnutrition related to morbid obesity No Intervention/Recommendation Comments 1.Continue with CCHO 60 gm diet as ordered. 2.Continue on anti- hyperglycemic medications for glucose control per MD order. Expected Outcomes/Goals Expected Outcomes/Goals 1. PO intake to continue to meet 75% of nutritional needs. 2. Monitor PO intake, wt, skin integrity, and nutrition related labs to trend WNL. 3. F/U as high risk in 2-3 days, 06/08-06/09
[2019-06-08] MEDS: Sodium Chloride 0.9% 1,000 ML IV SCH (18:30)
[2019-06-08] MEDS: Atorvastatin Calcium 10 MG TAB PO SCH (21:18)
[2019-06-09] MEDS: Sodium Chloride 0.9% 1,000 ML IV SCH ×3 (05:01→09:58)
[2019-06-09] MEDS: INSULIN LISPRO 100 UNIT/ML VIAL SUBQ SCH ×2 (06:54→11:15)
[2019-06-09] MEDS: INSULIN 70/30 100 UNITS/ML SUBQ SCH (06:56)
[2019-06-09] MEDS: Heparin Sod 5,000Units/ML 5,000 UNITS/ML VIAL SUBQ SCH (08:28)
[2019-06-09] MEDS: Pantoprazole 40 mg EC Tab PO SCH (08:28)
[2019-06-09] MEDS: Vitamin D3 2,000 IU SGL PO SCH (08:29)
--- NOTE | 2019-06-09 11:09 | Internal Medicine Prog Note ---
Internal Medicine Subjective - Subjective Service Date: 06/09/19 Patient seen and examined:: with staff Patient is:: awake, verbal, interactive, arousable, in bed, other (No acute distress) Patient Complaints of:: other Per staff patient has:: no adverse event, no episodes of fall (Admitted with high glucose.) Internal Medicine Objective - Results Result Diagrams: 06/07/19 08:55 06/07/19 08:55 Recent Labs: Laboratory Last Values WBC 3.3 Th/cmm (4.8-10.8) L 06/07/19 08:55 RBC 3.72 Mil/cmm (3.80-5.80) L 06/07/19 08:55 Hgb 9.7 gm/dL (12-16) L 06/07/19 08:55 Hct 29.5 % (41.0-60) L 06/07/19 08:55 MCV 79.2 fl (80-99) L 06/07/19 08:55 MCH 26.1 pg (27.0-31.0) L 06/07/19 08:55 MCHC Differential 32.9 pg (28.0-36.0) 06/07/19 08:55 RDW 14.5 % (11.5-20.0) 06/07/19 08:55 Plt Count 242 Th/cmm (150-400) 06/07/19 08:55 MPV 8.2 fl 06/07/19 08:55 Neutrophils % 61.2 % (40.0-80.0) 06/07/19 08:55 Lymphocytes % 24.6 % (20.0-50.0) 06/07/19 08:55 Monocytes % 8.2 % (2.0-10.0) 06/07/19 08:55 Eosinophils % 4.8 % (0.0-5.0) 06/07/19 08:55 Basophils % 1.2 % (0.0-2.0) 06/07/19 08:55 Sodium 137 mEq/L (136-145) 06/07/19 08:55 Potassium 3.3 mEq/L (3.5-5.1) L 06/07/19 08:55 Chloride 104 mEq/L (98-107) 06/07/19 08:55 Carbon Dioxide 24.5 mEq/L (21.0-31.0) 06/07/19 08:55 Anion Gap 11.8 (7.0-16.0) 06/07/19 08:55 BUN 11 mg/dL (7-25) 06/07/19 08:55 Creatinine 0.7 mg/dL (0.7-1.3) 06/07/19 08:55 Est GFR ( Amer) TNP 06/07/19 08:55 Est GFR (Non-Af Amer) TNP 06/07/19 08:55 BUN/Creatinine Ratio 15.7 06/07/19 08:55 Glucose 308 mg/dL (70-105) H 06/07/19 08:55 POC Glucose 108 MG/DL (70 - 105) H 06/09/19 05:15 Calcium 8.5 mg/dL (8.6-10.3) L 06/07/19 08:55 Magnesium 2.2 mg/dL (1.9-2.7) 06/05/19 13:25 Total Bilirubin 0.5 mg/dL (0.3-1.0) 06/06/19 04:45 AST 13 U/L (13-39) 06/06/19 04:45 ALT 4 U/L (7-52) L 06/06/19 04:45 Alkaline Phosphatase 61 U/L (34-104) 06/06/19 04:45 Total Protein 6.4 gm/dL (6.0-8.3) 06/06/19 04:45 Albumin 3.8 gm/dL (4.2-5.5) L 06/06/19 04:45 Globulin 2.6 gm/dL 06/06/19 04:45 Albumin/Globulin Ratio 1.5 (1.0-1.8) 06/06/19 04:45 TSH 1.04 uIU/ml (0.34-5.60) 06/06/19 04:45 Urine Source RANDOM 06/05/19 14:00 Urine Color YELLOW 06/05/19 14:00 Urine Clarity HAZY (CLEAR) 06/05/19 14:00 Urine pH 6.0 (4.6 - 8.0) 06/05/19 14:00 Ur Specific [place] 1.015 (1.005-1.030) 06/05/19 14:00 Urine Protein 100 mg/dL (NEGATIVE) H 06/05/19 14:00 Urine Glucose (UA) >=1000 mg/dL (NEGATIVE) H 06/05/19 14:00 Urine Ketones TRACE mg/dL (NEGATIVE) 06/05/19 14:00 Urine Blood NEGATIVE (NEGATIVE) 06/05/19 14:00 Urine Nitrate NEGATIVE (NEGATIVE) 06/05/19 14:00 Urine Bilirubin NEGATIVE (NEGATIVE) 06/05/19 14:00 Urine Urobilinogen 1.0 E.U./dL (0.2 - 1.0) 06/05/19 14:00 Ur Leukocyte Esterase NEGATIVE (NEGATIVE) 06/05/19 14:00 Urine RBC NONE SEEN /hpf (0-5) 06/05/19 14:00 Urine WBC 2-5 /hpf (0-5) 06/05/19 14:00 Ur Epithelial Cells OCCASIONAL /lpf (FEW) 06/05/19 14:00 Urine Bacteria FEW /hpf (NONE SEEN) 06/05/19 14:00 - Physical Exam Vitals and I&O: Vital Signs Temp 97.4 F 06/09/19 08:00 Pulse 62 06/09/19 08:31 Resp 18 06/09/19 08:00 BP 155/63 06/09/19 08:31 Pulse Ox 98 06/09/19 08:00 Intake & Output 06/08/19 06/09/19 06/09/19 18:59 06:59 18:59 Intake Total 200 1400 495.000 Output Total 800 2000 Balance -600 -600 495.000 Weight (lbs) 70.579 kg 67.086 kg Intake: Intake, IV Amount 1000 495.000 Sodium Chloride 0.9% 1, 1000 495.000 000 ml @ 100 mls/hr IV . Q10H [facility] Rx#:[id number] Oral 200 400 Output: Urine 800 2000 Other: Weight Source Bedscale Bedscale Active Medications: Current Medications Amlodipine Besylate (Norvasc) 10 mg PO DAILY SUSAN Stop: 08/05/19 08:59 Last Admin: 06/09/19 08:31 Dose: 10 mg Atorvastatin Calcium (Lipitor) 20 mg PO HS SUSAN Stop: 08/05/19 20:59 Last Admin: 06/08/19 21:18 Dose: 20 mg Donepezil HCl (Aricept) 10 mg PO HS SUSAN Stop: 08/04/19 20:59 Last Admin: 06/08/19 21:18 Dose: 10 mg Doxazosin Mesylate (Cardura) 4 mg PO DAILY [facility] Stop: 08/05/19 08:59 Last Admin: 06/09/19 08:29 Dose: 4 mg Folic Acid (Folate) 0.4 mg PO DAILY [facility]USAN Stop: 08/05/19 08:59 Last Admin: 06/09/19 08:28 Dose: 0.4 mg Gabapentin (Neurontin) 100 mg PO BID [facility] Stop: 08/05/19 08:59 Last Admin: 06/09/19 08:29 Dose: 100 mg Heparin Sodium (Porcine) (Heparin) 5,000 units SUBQ Q12H [facility] Stop: 08/05/19 20:59 Last Admin: 06/09/19 08:28 Dose: 5,000 units Sodium Chloride (Nacl 0.9%) 1,000 mls @ 100 mls/hr IV .Q10H [facility] Stop: 08/04/19 16:39 Last Admin: 06/09/19 09:58 Dose: 100 mls/hr Insulin Human Isoph/Insulin Regular (Humulin 70/30) 18 unit SUBQ BIDAC [facility] Stop: 08/05/19 08:59 Last Admin: 06/09/19 06:56 Dose: 18 units Insulin Human Lispro (Humalog) 2 unit SUBQ [facility]; Protocol Stop: 08/05/19 00:00 Last Admin: 06/09/19 06:54 Dose: Not Given Lisinopril (Zestril) 40 mg PO DAILY [facility] Stop: 08/05/19 08:59 Last Admin: 06/09/19 08:31 Dose: 40 mg Memantine (Namenda) 5 mg PO TID [facility] Stop: 08/05/19 08:59 Last Admin: 06/09/19 08:29 Dose: 5 mg Metformin HCl (Glucophage) 500 mg PO BID [facility] Stop: 08/04/19 16:59 Last Admin: 06/09/19 08:28 Dose: 500 mg Miscellaneous (Vte Chemical Prophylaxis Screen/ Admission) 1 ea MC PRN PRN PRN Reason: PROTOCOL Stop: 08/05/19 13:47 Pantoprazole Sodium (Protonix) 40 mg PO DAILY [facility] Stop: 08/05/19 08:59 Last Admin: 06/09/19 08:28 Dose: 40 mg Sodium Chloride (Nacl Tab) 1 gm PO DAILY [facility] Stop: 08/05/19 08:59 Last Admin: 06/09/19 08:29 Dose: 1 gm Thiamine HCl (Vitamin B1) 250 mg PO DAILY [facility] Stop: 08/05/19 08:59 Last Admin: 06/09/19 08:28 Dose: 250 mg Vitamin D (Vitamin D3) 2,000 iu PO DAILY [facility] Stop: 08/05/19 08:59 Last Admin: 06/09/19 08:29 Dose: 2,000 iu Physical Exam: Patient has fatigue and weakness. General: weak HEENT: NC/AT Neck: Supple, No JVD Lungs: CTAB Cardiovascular: RRR, Normal S1, Normal S2 Abdomen: soft, non-tender Extremities: clear Neurological: no change Internal Medicine Assmt/Plan - Assessment Assessment: nemia. Diabetes with blood sugar control. Hyperglycemia. History of heavy alcohol use. - Plan Plan: Continuation of care. Monitor Labs, Hemoglobin levels. Continue present meds as directed. Accu-check daily, Continue DM meds as directed. Monitor Diet/Nutritional support. Physical therapy.Occupational therapy prn. Fall precaution, frequent nursing rounds, and as needed restraints to prevent fall. Supportive care. Continue collaborating with consulting specialists, case management and nursing team. Will Monitor patient and continue present care management. Nutritional Asmnt/Malnutr-PDOC - Dietary Evaluation Malnutrition Findings (Please click <Entered> for more info): Nutritional Asmnt/Malnutrition Start: 06/06/19 16: 15 Text: Status: Complete Freq: Protocol: Document 06/06/19 16:15 BINH (Rec: 06/06/19 16:18 [email or web address] ) Nutritional Asmnt/Malnutrition Patient General Information Nutritional Screening High Risk Low Risk Diagnosis Uncontrolled Diabetes Pertinent Medical Hx/Surgical Hx HTN, DM, Dyslipidemia, BPH Subjective Information IA/Consult: Uncontrolled Diabetes Pt is a 84-year-old male admitted on 06/05 d/t uncontrolled diabetes. Per H& P Record, Pt is a heavy drinker, drinks beer and tequila as well as whiskey. Pt stated he drinks about 6 pack beers per day. Per Meal/ Nutrition Activity Record, Pt ate 100% dinner on 06/05. Per RN Sissy, Pt ate 100% breakfast and lunch today. RN stated Pts usual diet was not noted since Pt is from home and [place] speaking only. No Q[place] speaking staffs available at time of visit. Will assess as high risk in 2- 3 days. HT: 56 WT: 140 LB (63.64 kg) BMI: 22.60 (Normal) GI: WNL, Non-tender, Large, Round BM: Not Noted I/O: 1660/Not Noted Skin: WNL, Intact, Warm, Dry, Elastic Isaac: 20 Diet Order: CCHO 60 gm Estimated Energy Needs: ( Geriatric, CBW) 0790-0569 kcals (25-30 kcals/ kg) 63-76 g Pro (1.0-1.2 g/kg) 7007-0186 ml (25-30 ml/kg) Current Diet Order/ Nutrition Support CCHO 60 gm Pertinent Medications Lipitor, Folate, Humulin 70/30 , Humalog, Glucophage, Protonix, Nacl 0.9%, Nacl Tab, Vitamin B1, Vitamin D3 Pertinent Labs POC Glucose (last 24 hours) 256, 170, 194, 252 06/06: Hgb/Hct 9.7/29.8, Glucose 166, Alb 3.8 06/05: Hgb/Hct 9.6/28.9, Glucose 220 Nutritional Hx/Data Height 1.68 m Height (Calculated Centimeters) 167.6 Current Weight (lbs) 63.503 kg Weight (Calculated Kilograms) 63.5 Weight (Calculated Grams) 22933.9 [place] Body Weight 64.55 kg % [place] Body Weight 99 Body Mass Index (BMI) 22.6 Weight Status Approriate GI Symptoms GI Symptoms None Last BM Not Noted Skin Integrity/Comment: WNL, Intact, Warm, Dry, Elastic Isaac: 20 Current %PO Good (75-100%) Estimated Nutritional Goals BEE in Kcals: Using Current wt Calories/Kcals/Kg 25-30 Kcals Calculated 0302-3916 Protein: Using Current wt Protein g/k.0-1.2 Protein Calculated 63-76 Fluid: ml 9438-2849 ml (25-30 ml/kg) Nutritional Problem 1. Problem Problem Altered nutrition related labs Etiology r/t endocrine dysfunction and HX of DM Signs/Symptoms: aeb Glucose 166 and POC Glucose (last 24 hours) 256, 170, 194, 252 Malnutrition Related to Morbid Obesity Malnutrition related to morbid obesity No Intervention/Recommendation Comments 1.Continue with [facility] 60 gm diet as ordered. 2.Continue on anti- hyperglycemic medications for glucose control per MD order. Expected Outcomes/Goals Expected Outcomes/Goals 1. PO intake to continue to meet 75% of nutritional needs. 2. Monitor PO intake, wt, skin integrity, and nutrition related labs to trend WNL. 3. F/U as high risk in 2-3 days, 06/08-06/09
== END 2019-06-09 16:50 | DRG 639 ==
LOC: ER 12:59 → MSI 15:19
PROVIDERS: ADMIT Internal Medicine; ATTEND Internal Medicine
DX: E11.65 Type 2 diabetes mellitus with hyperglycemia (principal); F10.20 Alcohol dependence, uncomplicated; D72.819 Decreased white blood cell count, unspecified; N40.0 Benign prostatic hyperplasia without lower urinary tract symptoms; I10 Essential (primary) hypertension; F03.90 Unspecified dementia, unspecified severity, without behavioral disturbance, psychotic disturbance, mood disturbance, and anxiety; D50.9 Iron deficiency anemia, unspecified
CPT/HCPCS: 36415-UA; 71045-TC; 80048-TC; 80053-TC; 81001-TC; 82948-90; 83036-90; 83735-TC; 84443-TC; 85025-TC; 93005; J1644; J7030; Z7610